=== PATIENT | female | born 1950 | race Caucasian/White ===

== ENCOUNTER 2024-06-01 19:46 | Inpatient (IN) | payer MEDICARE, OTHER, SELFPAY ==
[2024-06-01 15:18] VITALS: BMI 31.1
[2024-06-01 15:23] VITALS: BP 187/93
--- NOTE | 2024-06-01 15:24 | ED.GENMED ---
History of Present Illness
<Dat Santos MD, Resident - Last Filed: 06/01/24 16:56>
General
Chief Complaint: Fall
Source: patient and family
Time Seen by Provider: 06/01/24 15:14
History of Present Illness
History of Present Illness:
73-year-old female, Ms. Jenni Kaur with past medical history significant for diabetes mellitus, obstructive sleep apnea, hypertension, CAD status post CABG X2, restless leg syndrome, chronic balance issues, migraines presented to the ER with
left hip pain after she sustained a fall an hour ago. Patient reports that she was coming out of an ice cream shop and has not realized that there is a curb and tripped over. Patient reports that she fell on her back and hit her head on the curb.
No history of dizziness/lightheadedness, loss of consciousness, nausea/vomiting, visual disturbances, focal neurological deficits. She was able to recollect the events during the fall.Patient's reports that she has some ongoing balance
issues for which she is seeing a physiotherapist/neurologist and had 2 falls in the past couple of years.Patient reports that she has pain in the left inguinal region towards the medial side, 10/10, nonradiating, no loss of sensation in the Left
lower extremity. She is on aspirin 81 mg.
Past History
<Dat Santos MD, Resident - Last Filed: 06/01/24 16:56>
Past History
ED Past Medical History: CAD (CABG X2 in 2013), CVA, Fibromyalgia, HTN, NIDDM and Other (Restless leg syndrome, obstructive sleep apnea on BiPAP)
ED Past Surgical History: Cholecystectomy and Other (Lumbar spinal stenosis s/p x stop device implantation.)
Social History
Tobacco: Non-smoker
Alcohol: Occasional
Drug: Marijuana (Medical marijuana for neuropathy.)
Personal:
Living: with family
Review of Systems
<Dat Santos MD, Resident - Last Filed: 06/01/24 16:56>
Review of Systems
All Other Systems: ROS reviewed and negative except as documented in HPI and ROS
Phy Exam
<Dat Santos MD, Resident - Last Filed: 06/01/24 16:56>
Physical Exam
Physical Exam:
GEN: Patient is in acute distress due to pain.
Eyes: PERRLA, EOMs intact, no scleral icterus
HENT: NCAT, oral mucosa moist, no JVD, no cervical adenopathy.
Lungs: Clear to auscultation anteriorly
Cardiac: RRR, no M/R/G, no peripheral edema. Radial pulses 2+ bilat
Abdomen: S, NT, ND, NABS, no masses or hepatosplenomegaly
Neuro: AO x 3, no focal deficits to BUE/BLE, normal sensation throughout
MSK: Left lower extremity shortened and externally rotated. Tenderness to palpation in the inguinal region on the medial aspect. No visible swelling or erythema. Distal neurovasculature intact. Range of motion restricted due to pain, sensations
intact. Left-sided hammertoe.
Skin: No rashes, petechiae. Normal color, no pallor or jaundice.
Psych: Calm, cooperative, proper hygiene
Course
<Dat Santos MD, Resident - Last Filed: 06/01/24 16:56>
Orders/Labs/Results
Orders:
Orders
06/01/24 15:21
Hip, Left 2-3 Views [CR Hip - LT w/wo Pel 2-3 Vw*] Urgent
Comment:
Reason For Exam: hip trauma left
Include a pelvis x-ray?: Yes
06/01/24 15:30
Basic Metabolic Panel Urgent
Complete Blood Count/With Diff Urgent
06/01/24 15:32
HYDROmorphone [Dilaudid] 0.5 mg .ROUTE .STK-MED ONE
06/01/24 15:33
HYDROmorphone [Dilaudid] 0.5 mg IV NOW STA
Abnormal Lab Results
06/01/24
15:30
MCH 33.2 H pg
(27.0-31.0)
Abs Immat Gran (auto) 0.1 H 10^3/uL
(0-0.05)
Immature Gran % 0.6 H %
(0-0.5)
Carbon Dioxide 31 H mmol/L
(22-30)
BUN 20 H mg/dl
(7-17)
Glucose 105 H mg/dl
(70-99)
06/01/24 15:30
06/01/24 15:30
Vital Signs
Initial and Last Documented VS:
Initial Vital Signs
BP
187/93
06/01/24 15:23
Last Documented Vital Signs
Pulse Resp BP Pulse Ox
84 13 187/93 97
06/01/24 16:00 06/01/24 16:00 06/01/24 15:23 06/01/24 15:45
<Ruddy Rosales, DO - Last Filed: 06/01/24 15:30>
Orders/Labs/Results
Orders:
Orders
06/01/24 15:21
Hip, Left 2-3 Views [CR Hip - LT w/wo Pel 2-3 Vw*] Urgent
Comment:
Reason For Exam: hip trauma left
Include a pelvis x-ray?: Yes
06/01/24 15:30
Basic Metabolic Panel Urgent
Complete Blood Count/With Diff Urgent
06/01/24 15:32
HYDROmorphone [Dilaudid] 0.5 mg .ROUTE .STK-MED ONE
06/01/24 15:33
HYDROmorphone [Dilaudid] 0.5 mg IV NOW STA
Abnormal Lab Results
06/01/24
15:30
MCH 33.2 H pg
(27.0-31.0)
Abs Immat Gran (auto) 0.1 H 10^3/uL
(0-0.05)
Immature Gran % 0.6 H %
(0-0.5)
Carbon Dioxide 31 H mmol/L
(22-30)
BUN 20 H mg/dl
(7-17)
Glucose 105 H mg/dl
(70-99)
06/01/24 15:30
06/01/24 15:30
Vital Signs
Initial and Last Documented VS:
Initial Vital Signs
BP
187/93
06/01/24 15:23
Last Documented Vital Signs
Pulse Resp BP Pulse Ox
84 13 187/93 97
06/01/24 16:00 06/01/24 16:00 06/01/24 15:23 06/01/24 15:45
<Dat Santos MD, Resident - Last Filed: 06/01/24 16:56>
MDM/Problems Addressed
Differential Diagnosis Includes:
Left-sided fracture of femur.
MDM/Problems Addressed:
Pain control with IV Dilaudid.
X-ray showed evidence of fracture neck of the femur.
Admitting the patient for further management.
Informed hospitalist, orthopedician director of litigation.
<Dat Santos MD, Resident - Last Filed: 06/01/24 16:56>
*Critical Care Note
Total Time (30-74mins, 75-104mins- exclusive of procedures): Not Applicable
ED Attending Note
<Dat Santos MD, Resident - Last Filed: 06/01/24 16:56>
-
Portions of this chart may have been created with voice recognition software.� Occasional wrong word or��sound alike� substitutions may have occurred due to the inherent limitations of voice recognition software.
<Ruddy Arellanotajantonina, DO - Last Filed: 06/01/24 15:30>
ED Attending Note
Patient seen and examined by attending physician: Yes
I performed the substantive portion of visit, reviewed & personally made and approve the management plan that is documented in note by myself or DANIELE.: Yes
I performed a history and physical exam of patient and discussed management with resident, I reviewed resident's note and agree with documented findings and plan of care.: Yes
ED Attending Note:
HPI: I agree with resident note
EXAM: The patient has severe pain with passive range of motion into rotation of the hip, she has markedly decreased active range of motion at the hip into flexion
TIME OF INITIAL ENCOUNTER: 3:20 PM
NUMBER AND COMPLEXITY OF PROBLEMS ADDRESSED AT THE ENCOUNTER
� Chronic conditions affecting care: High blood pressure, hyperlipidemia, [place]
� Acute Exacerbation and/or Progression of Chronic Illness: This is an acute problem
� Differential Diagnosis includes: Hip fracture, hip strain, pelvis fracture
AMOUNT AND/OR COMPLEXITY OF DATA TO BE REVIEWED AND ANALYZED
� I performed an independent evaluation of and my interpretation is:
EKG:
CT:
X-rays:
Laboratory Studies:
Other:
� Review of other/old records: No old records available for review in [facility]
� Clinical information was obtained by an independent historian: EMS
� Prescriptions/Medications Considered but not given:
� Further testing considered but not performed:
RISK OF COMPLICATIONS AND/OR MORBIDITY OR MORTALITY OF PATIENT MANAGEMENT
� Social determinants of health affecting care: Lives at home
� Discussion with other providers:
� Escalation of care including admission/observation vs risk of discharge considered: The patient was given narcotic analgesia due to concern for hip fracture upon arrival.
Discharge Plan
Departure
Date of Disposition: 06/01/24
Time of Disposition: 16:44
Admit to: Med/Surg
Presentation/result/management discussed w/ accepting MD/DO: Hospitalist
Condition: Fair
Prescriptions:
No Action
cephalexin 500 mg capsule
500 mg PO QID
folic acid 1 mg Tablet
1 mg PO BID
metoprolol succinate [Toprol XL] 25 mg Tablet Extended Release 24 Hr
25 mg PO HS
methadone 5 mg Tablet
5 mg PO BID@1800,2200
bupropion HCl [Wellbutrin XL] 150 mg Tablet Extended Release 24 Hr
150 mg PO DAILY
Mounjaro 7.5 mg/0.5 mL Pen Injector
7.5 mg SC JOYA
losartan 50 mg Tablet
50 mg PO DAILYPRN PRN (Reason: high blood pressure)
fexofenadine [Jennifer] 60 mg Tablet
60 mg PO DAILY
ketorolac 10 mg Tablet
10 mg PO BIDPRN PRN (Reason: migraines )
Rx Instructions:
maximum total duration of 5 days from all oral, intranasal, or parenteral formulations
famotidine [Pepcid] 20 mg Tablet
20 mg PO HS
ferrous sulfate 325 mg (65 mg iron) Tablet
325 mg PO DAILY@0200
levothyroxine [Synthroid] 150 mcg Tablet
150 mcg PO HS
furosemide [Lasix] 20 mg Tablet
20 mg PO DAILYPRN PRN (Reason: incease weight)
fluticasone propionate [Flonase] 50 mcg/actuation [place],Suspension
1 spray INTRANASAL DAILYPRN PRN (Reason: allergies)
duloxetine [Cymbalta] 30 mg Capsule,Delayed Release(Dr/Ec)
30 mg PO BID@1800,2200
omega-3 acid ethyl esters [Lovaza] 1 gram Capsule
2 cap PO DAILY
Vitron-C 65 mg iron- 125 mg Tablet,Delayed Release (Dr/Ec)
1 tab PO DAILY
Nurtec ODT 75 mg Tablet,Disintegrating
75 mg PO DAILYPRN PRN (Reason: migraines)
vitamin D3-vitamin K2 1,250-200 mcg Capsule
1 cap PO DAILY
magnesium glycinate 100 mg magnesium Capsule
100 mg PO BID
Medical Marijuana-Thc Tablets
1 tab PO HS
Interventions
Interventions:
*Risk Screen - Suicide Last Done: 06/01/24 15:18
*General Assessment Last Done: 06/01/24 15:18
*Neglect/Abuse Screening Last Done: 06/01/24 15:18
*ED COVID-19 Vaccine History Last Done: 06/01/24 15:18
ED-Musculoskeletal Assessment Last Done: 06/01/24 15:18
ED- Neurological Assessment Last Done: 06/01/24 15:18
ED-Skin Assessment Last Done: 06/01/24 15:18
Discharge Date and Time
Print Language: ISRAELI
[2024-06-01] MEDS: DILAUDID 0.5 MG IV ×2 (15:36→18:08)
[2024-06-01 15:38] LABS: % Basophils 0.6 % (0-2); % Eosinophils 1.4 % (0-6); % Immature Granulocytes 0.6 % (0-0.5); % Lymphocytes 30.1 % (20.5-51.1); % Monocytes 7.4 % (1.7-9.3); % Neutrophils 59.9 % (42.2-75.2); Absolute Basophils 0.1 10^3/uL (0-0.2); Absolute Eosinophils 0.1 10^3/uL (0-0.7); Absolute Immature Granulocytes 0.1 10^3/uL (0-0.05); Absolute Lymphocytes 2.6 10^3/uL (1.2-3.4); Absolute Monocytes 0.6 10^3/uL (0.1-0.6); Absolute Neutrophils 5.2 10^3/uL (1.4-6.5); Hematocrit 39.2 % (37.0-47.0); Hemoglobin 14.2 g/dL (12.0-16.0); Mean Corp Hgb Conc. 36.2 g/dL (33.0-37.0); Mean Corpuscular Hgb 33.2 pg (27.0-31.0); Mean Corpuscular Volume 91.6 fL (81.0-99.0); Nucleated Red Blood Cells % 0 %; Platelet Count 275 10^3/uL (130-400); Red Blood Cell Count 4.28 10^6/uL (4.20-5.40); Red Cell Dist. Width 12.6 % (11.5-14.5); White Blood Cell Count 8.6 10^3/uL (4.8-10.8)
[2024-06-01 15:49] LABS: Blood Urea Nitrogen 20 mg/dl (7-17); Calcium 9.8 mg/dl (8.4-10.2); Carbon Dioxide 31 mmol/L (22-30); Chloride 99 mmol/L (98-107); Estimated Creatinine Clearance 64 ml/min; Glucose 105 mg/dl (70-99); Potassium 4.7 mmol/L (3.5-5.1); Sodium 136 mmol/L (135-145); eGFR > 60.00
[2024-06-01 16:30] VITALS: BP 154/90
[2024-06-01 18:00] VITALS: BP 145/67
--- NOTE | 2024-06-01 19:01 | HPS.HSE ---
Family Physician
-
Family Physician: Mellissa Ring MD
Chief Complaint
-
Fall and broken hip
History of Present Illness
73-year-old woman, with past medical history significant for:
diabetes mellitus,
obstructive sleep apnea,
hypertension,
CAD status post CABG X2,
restless leg syndrome,
chronic balance issues,
migraines
Comes to the ER with left hip pain after she had a fall. She was coming out of an ice cream shop, there was a curb and tripped over. She reports that she fell on her back and hit her head on the curb. No history of dizziness/lightheadedness, loss
of consciousness, nausea/vomiting, visual disturbances, focal neurological deficits. She was able to recollect the events during the fall. She has ongoing balance issues and has had 2 falls in the past couple of years. Patient reports that she has
pain in the left inguinal region towards the medial side, 10/10 in intensity, nonradiating, and no loss of sensation in the Left lower extremity. She is on aspirin 81 mg. At the time of my interview, she had received pain meds and was starting to
feel better.
Medical History
Past Medical History
Past Medical History: Reports Other
Additional Past Medical History:
CAD (CABG X2 in 2012),
CVA,
Fibromyalgia,
essential HTN,
NIDDM
Restless leg syndrome,
obstructive sleep apnea on BiPAP
Cholecystectomy
Lumbar spinal stenosis s/p x stop device implantation
Past Surgical History: Reports Other
Additional Past Surgical History:
See above
Social History
Tobacco: Non-smoker
Alcohol: Occasional
Drug: Marijuana
Personal:
Living: With Family
Family History
Family History: Not pertinent
Allergies / Home Medications
Allergies reflects when Allergies were last updated in [employer].
Home Medications with original date entered in [employer]
Allergy/Medication List:
Allergies
Allergy/AdvReac Type Severity Reaction Status Date / Time
No Known Allergies Allergy Unverified 06/01/24 15:29
Home Medications
Medical Marijuana-Thc Tablets 1 tab PO HS 06/01/24
bupropion HCl 150 mg 24 hr tablet, extended release (Wellbutrin XL) 150 mg PO DAILY 06/01/24
cephalexin 500 mg capsule 500 mg PO QID 06/01/24
duloxetine 30 mg capsule,delayed release (Cymbalta) 30 mg PO BID@1800,2200 06/01/24
famotidine 20 mg tablet (Pepcid) 20 mg PO HS 06/01/24
ferrous sulfate 325 mg (65 mg iron) tablet 325 mg PO DAILY@0200 06/01/24
fexofenadine 60 mg tablet 60 mg PO DAILY 06/01/24
fluticasone propionate 50 mcg/actuation nasal spray,suspension 1 spray intranasal DAILYPRN PRN allergies 06/01/24
folic acid 1 mg tablet 1 mg PO BID 06/01/24
furosemide 20 mg tablet (Lasix) 20 mg PO DAILYPRN PRN incease weight 06/01/24
iron,carbonyl 65 mg-vitamin C 125 mg tablet,delayed release (Vitron-C) 1 tab PO DAILY 06/01/24
ketorolac 10 mg tablet 10 mg PO BIDPRN PRN migraines 06/01/24
levothyroxine 150 mcg tablet (Synthroid) 150 mcg PO HS 06/01/24
losartan 50 mg tablet 50 mg PO DAILYPRN PRN high blood pressure 06/01/24
magnesium glycinate 100 mg PO BID 06/01/24
methadone 5 mg tablet 5 mg PO BID@1800,2200 06/01/24
metoprolol succinate 25 mg tablet,extended release 24 hr (Toprol XL) 25 mg PO HS 06/01/24
omega-3 acid ethyl esters 1 gram capsule (Lovaza) 2 cap PO DAILY 06/01/24
rimegepant 75 mg disintegrating tablet (Nurtec ODT) 75 mg PO DAILYPRN PRN migraines 06/01/24
tirzepatide 7.5 mg/0.5 mL subcutaneous pen injector (Mounjaro) 7.5 mg SC JOYA 06/01/24
vitamin D3 1,250 mcg (50,000 unit)-vitamin K2 200 mcg capsule 1 cap PO DAILY 06/01/24
Review of Systems
-
History Source: Patient
A 12 point ROS was completed and negative except as noted: Yes
Physical Exam
Vital Signs
Vital Signs
Pulse Resp BP Pulse Ox
84 13 145/67 97
06/01/24 16:00 06/01/24 16:00 06/01/24 18:00 06/01/24 18:30
Physical Exam
General: Well Developed, Well Nourished, Conversant and Pain
HEENT: [place] Conjunctivae, No Ptosis, Nose Appears Normal and Ears Appear Normal
Respiratory: Clear
Cardiac: S1/S2 and Regular Rhythm
GI: Soft, Non Tender and Non Distended
Musculoskeletal: No Clubbing, No Cyanosis and No Edema
Skin: Warm and Dry
Neuro: Awake, Alert, Oriented and AO x 3
Psych: Calm
Laboratory Results
-
06/01/24 15:30
06/01/24 15:30
Data Reviewed
-
Lab Data: Labs Reviewed by me
Impression/Plan
-
IMPRESSION:
73 woman with broken hip after a mechanical fall. Other significant findings:
BUN/Creat > 20
Hip xray: Comminuted intertrochanteric fracture. No significant displacement or angulation. No hip dislocation. No periacetabular iliac fracture identified
PLAN:
1. broken hip - ortho consulted in the ED.
probable surgery tomorrow
NPO after midnight
Pain control
Gentle IV fluids tonight
2. multiple existing med problems with multiple Home meds
Eval meds and continue appropriate ones
Check ECG and CXR prior to surgery
3. Probable mild dehydration given BUN/Creat > 20
IV fluids tonight
recheck in am
Code: Full
SQ heparin for DVTp once now, then further DVTp per surgery
[2024-06-01 19:29] VITALS: BP 128/73
[2024-06-01] MEDS: MORPHINE SULFATE 2 MG IV ×2 (19:33→22:33)
[2024-06-01 20:10] VITALS: BP 182/98
[2024-06-01 20:20] VITALS: BMI 30.5
[2024-06-01] MEDS: NSS 1000 IV (21:31)
[2024-06-01] MEDS: HEPARIN 5000 UNITS SC (21:40)
[2024-06-01] MEDS: TYLENOL 650 MG PO (21:40)
[2024-06-01] MEDS: PEPCID 20 MG PO (21:41)
[2024-06-01] MEDS: TOPROL XL 25 MG PO (21:41)
[2024-06-01] MEDS: SYNTHROID 150 MCG PO (21:42)
[2024-06-01] MEDS: FOLVITE 1 MG PO (21:42)
[2024-06-01] MEDS: CYMBALTA DELAYED RELEASE 30 MG PO (21:42)
[2024-06-01] MEDS: COZAAR 50 MG PO (22:43)
[2024-06-01 23:04] VITALS: BP 168/92
[2024-06-02] VITALS (15 sets, daily range): BP systolic 142–187; BP diastolic 51–96; PULSE 2–88; BMI 29.4
[2024-06-02] MEDS: ROXICODONE 5 MG PO ×2 (00:29→23:43)
[2024-06-02] MEDS: TYLENOL 650 MG PO ×6 (00:29→23:43)
[2024-06-02] MEDS: FEOSOL 325 MG PO (02:22)
--- NOTE | 2024-06-02 03:07 | W.PN.UPDATE ---
Update Note
Progress Note Update
-Patient had a fall prior admission, hit her head. She complains of severe pain/headache LT side of the head where she hit during the fall. BP 162/92, hr 96, RR 14, temp 98.3, and SPO2 98 % RA. at bedside. Per ,' a friend was present
when she fell and stated that she hit her head bad'
-Patient is awake, alert able to know that she in the hospital, she is confused about the year but its her baseline from pervious stroke affect per .
-Redness was noted on the LT parietal and occipital region with tenderness. Patient denied blurred or change of vision. No neuro changes from the patient`s baseline was noted. Patient has history of Migraines but mentioned this current headache is
different than usual.
-Will start neuro checks.
-Head CT ordered. Result ---->with no evidence of acute intracranial abnormality. No evidence of hemorrhage or mass.
--- NOTE | 2024-06-02 03:26 | PTCARENOTE ---
02:47 2108- pt expressed to ER she hit her head when she fell but was asymptomatic at that time, pt is now c/o GUAJARDO 9/10 frontal and left parietal areas, she does have hx of migraines b/p 160/92 hr 96 , pt is c/o pressure type of pain but not usually
on the left parietal area. Neuros intact, DRINKING WATER TECHNICIAN notified, bedside assessment completed, Urgent CT ordered.
--- NOTE | 2024-06-02 03:31 | PTCARENOTE ---
20:10 pt was rec'd from ER, left hip fx, pt aa0x3, makes needs known, c/o pain t hip 02/28 MSO4 rec;d in ER. Left leg externally rotated with +1edema, vs WNL, pt and oriented to unit .
[2024-06-02] MEDS: MORPHINE SULFATE 2 MG IV ×2 (04:09→08:48)
--- NOTE | 2024-06-02 04:16 | PTCARENOTE ---
04:00 CT completed , smash hand pending.
--- NOTE | 2024-06-02 04:49 | PTCARENOTE ---
04:[address] called, CT of head neg. CHEN IS AWARE.
[2024-06-02] MEDS: NSS 1000 IV ×2 (05:39→16:21)
[2024-06-02] MEDS: LOPRESSOR 25 MG PO (06:49)
[2024-06-02 06:50] LABS: Hematocrit 37.2 % (37.0-47.0); Hemoglobin 13.9 g/dL (12.0-16.0); Mean Corp Hgb Conc. 37.4 g/dL (33.0-37.0); Mean Corpuscular Hgb 32.3 pg (27.0-31.0); Mean Corpuscular Volume 86.5 fL (81.0-99.0); Mean Platelet Volume 8.9 fL (7.4-10.4); Platelet Count 270 10^3/uL (130-400); Red Cell Dist. Width 12.3 % (11.5-14.5); White Blood Cell Count 12.5 10^3/uL (4.8-10.8)
[2024-06-02 07:39] LABS: Blood Urea Nitrogen 14 mg/dl (7-17); Calcium 9.5 mg/dl (8.4-10.2); Carbon Dioxide 28 mmol/L (22-30); Chloride 101 mmol/L (98-107); Estimated Creatinine Clearance 79 ml/min; Glucose 177 mg/dl (70-99); Potassium 4.1 mmol/L (3.5-5.1); Sodium 135 mmol/L (135-145); eGFR > 60.00
[2024-06-02 08:05] LABS: TSH 1.59 uIU/ml (0.47-4.68)
[2024-06-02] MEDS: FOLVITE 1 MG PO ×2 (08:49→21:56)
[2024-06-02] MEDS: WELLBUTRIN XL (24 hour extended release) 150 MG PO (08:50)
[2024-06-02] MEDS: HEPARIN SC ×3 (08:50→22:24)
[2024-06-02] MEDS: MAG-TAB SR 84 MG PO ×2 (08:50→21:58)
--- NOTE | 2024-06-02 09:11 | CON.ORTHO ---
Consultation
-
Date/Time Consultation Requested: Jun 14
Date/Time Consultation Performed: Jun 14
Requesting Provider: Do
Performing Provider: Jace Castroere
Reason for Consultation: Left hip fracture
Consultation - Orthopedics
History
Full H&P dictation to follow
HPI:
requested in consultation to this pleasant 73-year-old white female, with PMH of obstructive sleep apnea, hypertension, CAD status post CABG X2, restless leg syndrome, chronic balance issues, migraines, CVA, Fibromyalgia, essential HTN, NIDDM, seen
in the presence of her , status post mechanical fall yesterday coming out of an ice cream parlor. She denies a prodrome or LOC. However she did strike her head. CT of the head without abnormality. She had immediate pain in her left hip
and was transported here to [facility] where plain radiographs confirmed a left hip fracture. She denies any previous issues or injuries to the left hip. We requested in consultation given her left hip fracture
Allergies / Home Medications
Allergy/AdvReac Type Severity Reaction Status Date / Time
No Known Allergies Allergy Unverified 06/01/24 15:29
�Medication �Instructions �Recorded
Medical Marijuana-Thc Tablets 1 tab PO HS 06/01/24
bupropion HCl 150 mg 24 hr tablet, 150 mg PO DAILY 06/01/24
extended release (Wellbutrin XL)
cephalexin 500 mg capsule 500 mg PO QID 06/01/24
duloxetine 30 mg capsule,delayed 30 mg PO BID@1800,2200 06/01/24
release (Cymbalta)
famotidine 20 mg tablet (Pepcid) 20 mg PO HS 06/01/24
ferrous sulfate 325 mg (65 mg 325 mg PO DAILY@0200 06/01/24
iron) tablet
fexofenadine 60 mg tablet 60 mg PO DAILY 06/01/24
fluticasone propionate 50 1 spray intranasal DAILYPRN PRN 06/01/24
mcg/actuation nasal allergies
spray,suspension
folic acid 1 mg tablet 1 mg PO BID 06/01/24
furosemide 20 mg tablet (Lasix) 20 mg PO DAILYPRN PRN incease 06/01/24
weight
iron,carbonyl 65 mg-vitamin C 125 1 tab PO DAILY 06/01/24
mg tablet,delayed release
(Vitron-C)
ketorolac 10 mg tablet 10 mg PO BIDPRN PRN migraines 06/01/24
levothyroxine 150 mcg tablet 150 mcg PO HS 06/01/24
(Synthroid)
losartan 50 mg tablet 50 mg PO DAILYPRN PRN high blood 06/01/24
pressure
magnesium glycinate 100 mg PO BID 06/01/24
methadone 5 mg tablet 5 mg PO BID@1800,2200 06/01/24
metoprolol succinate 25 mg 25 mg PO HS 06/01/24
tablet,extended release 24 hr
(Toprol XL)
omega-3 acid ethyl esters 1 gram 2 cap PO DAILY 06/01/24
capsule (Lovaza)
rimegepant 75 mg disintegrating 75 mg PO DAILYPRN PRN migraines 06/01/24
tablet (Nurtec ODT)
tirzepatide 7.5 mg/0.5 mL 7.5 mg SC JOYA 06/01/24
subcutaneous pen injector
(Mounjaro)
vitamin D3 1,250 mcg (50,000 1 cap PO DAILY 06/01/24
unit)-vitamin K2 200 mcg capsule
Vital Signs / Lab Results
Temp Pulse Resp BP Pulse Ox
98.7 F 88 18 183/91 98
06/02/24 07:30 06/02/24 07:30 06/02/24 07:30 06/02/24 07:30 06/02/24 07:30
06/02/24 06:37
06/02/24 06:37
Assessment / Plan
PE: Afeb. Bedrest. left hip skin intact. LLE slight short and ER. Generalized pain to palpation about the hip. Positive logroll LLE. Deferred range of motion due to known fracture. Left knee nontender. Calf soft and nontender. Neurovascularly
intact in her left lower extremity.
Xrays: IT Fracture LEFT hip
Impression: RONAL
Plan: I discussed extensively with the patient and her bedside. Fortunately she does have a left hip fracture which would be best served with open treatment. Nonsurgical and surgical treatment options were discussed, including the RBAs
of each approach. After accepting all the proposed risks of surgery she and her would like to proceed. Based on the OR availability we are planning for sometime mid-to-late afternoon for gamma nail fixation of her left femur under the
direction of Dr. Chu. Operative site has been marked as the left hip. Surgical and blood consents have been signed. We briefly discussed the postop and rehab course. we will appreciate case management's assistance with disposition. She will
remain NPO. T&S requested. Discussed with attending hospitalist, Dr. Peter, who will ultimately alexsandra medical clearance to proceed with surgery if she is optimal. ABX concrete bucket loader to the OR. Again we will look to proceed a bit later today under the
direction of Dr. Chu. OR aware.
--- NOTE | 2024-06-02 09:17 | W.PN.HOSP.TC ---
Today's Communication/Plan
-
For OR today
Assessment / Plan
Assessment / Plan
HPI: 73-year-old white female, with PMH of obstructive sleep apnea, hypertension, CAD status post CABG X2, restless leg syndrome, chronic balance issues, migraines, CVA, Fibromyalgia, essential HTN, NIDDM, seen in the presence of her , status
post mechanical fall yesterday coming out of an ice cream parlor. She denies a prodrome or LOC. However she did strike her head. CT of the head without abnormality.
#Acute left hip intertrochanteric fracture
Appreciate orthopedic surgery input, for ORIF today
PT/OT, pain control, bowel regimen
#Leukocytosis
Afebrile, no signs or symptoms of infection
Likely reactive, monitor
#Anxiety/depression
Continue Wellbutrin, Cymbalta
#Hypothyroidism
Continue levothyroxine
#Benign essential hypertension
Continue metoprolol succinate 25 mg at bedtime
DVT prophylaxis�heparin
Full code
Total time spent to see the patient on the floor, examine the patient, review data and lab results, discuss treatment plan with patient, nursing staff around 35 minutes.
Physical Exam
General: No acute distress
HEENT: Normocephalic, Atraumatic, EOMI, MMM
Respiratory: Clear to Auscultation bilaterally
Cardiac: Normal S1/S2, Regular Rate and Rhythm
GI: Soft, Nontender, Nondistended, Normal Bowel Sounds
Musculoskeletal: Left leg shortened and externally rotated
Neuro: Nonfocal/Grossly Intact
Anticipated Discharge: 24 - 48 hours
Subjective/Interval History
-
Date of Service: June 02, 2024
Left hip pain 04/30. No CP/SOB/N/V, no fever.
Objective Data
-
Labs:
Laboratory Results
06/02/24
06:37
WBC 12.5 H
Hgb 13.9
Hct 37.2
Plt Count 270
Sodium 135
Potassium 4.1
Chloride 101
Carbon Dioxide 28
BUN 14
Creatinine 0.6
Glucose 177 H
Calcium 9.5
Vital Signs:
Vital Signs
Temp Pulse Resp BP Pulse Ox
98.7 F 88 18 183/91 98
06/02/24 07:30 06/02/24 07:30 06/02/24 07:30 06/02/24 07:30 06/02/24 07:30
I&O
06/01/24 06/02/24 06/03/24
06:59 06:59 06:59
Intake Total 1220 / 1220
Output Total 1100 / 1100
Balance 120 / 120
[2024-06-02] MEDS: MORPHINE SULFATE 4 MG IV (12:23)
[2024-06-02] MEDS: MIRALAX PO (16:20)
--- NOTE | 2024-06-02 19:52 | OR.RPT ---
Operative Report
Operative Report
Orthopaedic Surgery Operative Note
DATE OF OPERATION: � 06/02/2024
�
PREOPERATIVE DIAGNOSIS: Intertrochanteric Hip Fracture, Left
�
POSTOPERATIVE DIAGNOSIS: Same
�
OPERATION PERFORMED: Left intertrochanteric hip fracture open reduction and internal fixation with cephalomedullary nail
�
SURGEON: Salomon Chu MD
�
TELETYPIST: NA
�
ANESTHESIA: General
�
COMPLICATIONS: None.
�
ESTIMATED BLOOD LOSS: 200 mL.
�
DRAINS: None
SPECIMEN: None
IMPLANTS:�
Bellevue Gamma Cephalomeduallary nail; short nail 125 degree
Bellevue lag screw, 90 mm.�
5.0mm distal interlocking screw x1
INDICATIONS FOR PROCEDURE
73F presented to the ED after a trip and fall. Xrays showed displaced interto I discussed treatment options with the patient and family including nonoperative and operative treatments. We reviewed the natural history of the problem, as well as the
risks, benefits, and alternatives of various treatment options. Shared decision was to proceed with surgical treatment. The patient and family understood the risks including, but were not limited to, bleeding, infection, failure to relieve pain,
more pain than preop, damage to blood vessels and nerves, need for reoperation, mechanical failure of the implants, wound healing problems, stiffness, instability, blood clot, pulmonary embolism, myocardial infarction, pneumonia, arrhythmia, CVA,
and . All questions were answered, and informed consent was obtained.�
�
PROCEDURE IN DETAIL: The patient was identified in the preoperative holding area. The operative limb was identified as the operative site and marked with my initials. The patient was transferred to the operating room. General anesthesia was
performed. The patient was transferred to the [facility] operative table. IV antibiotics and tranexamic acid were given. All bony prominences were well padded. The operative limb was prepped and draped in the usual sterile fashion.�
We performed a surgical time-out.
A 1.6mm (0.65��) teofilo wire was placed in the distal femur, and traction bow was applied. This was well padded over the knee. 15lbs of skeletal traction was applied. The fracture was reduced with the aid of flouroscopy. A small lateral incision
was made, and the guide pin was placed over the medial aspect of the tip of the greater trochanter. The guide wire was advanced and checked for appropriate position on AP and lateral. The pin guide wire was advanced to the level of the lesser
trochanter. The opening reamer was used to open the starting point over the guide wire. The nail was then inserted over the guidewire down to the appropriate depth. The guide wire was removed. The targeting guide was assembled, and a lateral
incision was made for lag screw placement. A guide pin was advanced into the femoral head. Position was checked on AP and lateral. The length was measured to be 95mm. The drill was set to the appropriate depth, and the lag screw path was drilled
over the guide wire. The lag screw was then inserted into the femoral head just distal to the subchondral bone. Compression was applied. The locking screw was then placed into the top of the nail. A single distal interlocking screw was placed into
the static interolocking hole through the guide. Final fluoroscopy shots were performed which showed appropriate position and length of the implant and anatomic reduction of the fracture.�
The incisions were copiously irrigated with 3L normal saline. The deep fascial layers were closed with 0 PDS. The dermal layer closed with 2-0 PDS running. The skin was closed with dana. Sterile dressings were applied. The patient was awoken from
anesthesia without complication.�Sponge and instrument counts were correct x2 at the end of the case.�
�
I was present and participated in the entire procedure. The patient was sent to the recovery room in stable condition.�
Post operative plan:�
WBAT
PT/OT
Pain control
Delirium prevention
ABX: Ancef x24 hours
DVT: ASA 325 daily
Boston Chu MD
[2024-06-02 20:02] LABS: Glucose - Point of Care 139 mg/dl (70-99)
[2024-06-02] MEDS: DILAUDID 0.5 MG IV (20:30)
[2024-06-02] MEDS: NORMOSOL-R 1000 IV (21:05)
--- NOTE | 2024-06-02 21:45 | PTCARENOTE ---
Received patient from PACU. stable vitals. AAOx3, but very forgetful. on RA. Left hip dressing CDI. No pain at this time. IVF Normosol infusing at 100 as ordered. POC reviewed with patient and family
[2024-06-02] MEDS: NSS IV (21:55)
[2024-06-02] MEDS: ASPIRIN 325 MG PO (21:56)
[2024-06-02] MEDS: COLACE 100 MG PO (21:56)
[2024-06-02] MEDS: TYLENOL PO (21:57)
[2024-06-02] MEDS: PEPCID 20 MG PO (22:01)
[2024-06-02] MEDS: CYMBALTA DELAYED RELEASE PO (22:01)
[2024-06-02] MEDS: SYNTHROID 150 MCG PO (22:01)
[2024-06-02] MEDS: TOPROL XL 25 MG PO (22:01)
[2024-06-02] MEDS: CYMBALTA DELAYED RELEASE 30 MG PO (22:02)
[2024-06-02] MEDS: SENOKOT-S 2 TABLET PO (22:02)
[2024-06-03] VITALS (8 sets, daily range): BP systolic 114–171; BP diastolic 49–84
[2024-06-03] MEDS: ANCEF 5 IV ×2 (00:59→09:47)
[2024-06-03] MEDS: FEOSOL PO (02:00)
[2024-06-03] MEDS: ROXICODONE 10 MG PO ×2 (05:22→20:29)
[2024-06-03] MEDS: NORMOSOL-R 1000 IV ×2 (05:22→15:48)
[2024-06-03] MEDS: TYLENOL PO (05:56)
--- NOTE | 2024-06-03 07:21 | W.PN.ORTHO ---
Today's Communication / Plan
-
73-year-old female POD #[address] CMN with Dr. Chu
- WBAT LLE with use of walker for assistance
- PT/OT
- AM Hgb currently pending
- ASA 325mg once daily x 4 weeks for DVT ppx
- Pain control per primary team
- Follow-up in 2 weeks for incision check and x-rays
- Orthopedic surgery will continue to follow along
Assessment
.
Distal Motor Intact: Yes
Dressing:
Clean, dry and intact.
Aquacel dressings in place. No drainage.
Calf is soft and nontender.
Assessment:
POD #1 Left Hip Gamma Nail with Dr. Chu
Plan
.
Surgery / Date: Left Hip CMN / 06/02/[address] Chu
DVT Prophylaxis: Aspirin
Activity:
Out of bed.
PT/OT
Discharge Plan: Other
Discharge Information:
Appreciate CM
Subjective
.
.:
Patient resting comfortably.
Vital Signs and Labs
.
Vital Signs and Labs:
Temp Pulse Resp BP Pulse Ox
98.1 F 87 14 171/84 96
06/03/24 04:00 06/03/24 04:00 06/03/24 04:00 06/03/24 04:00 06/03/24 04:00
[2024-06-03 08:34] LABS: Hematocrit 32.2 % (37.0-47.0); Hemoglobin 11.7 g/dL (12.0-16.0); Mean Corp Hgb Conc. 36.3 g/dL (33.0-37.0); Mean Corpuscular Hgb 32.3 pg (27.0-31.0); Mean Platelet Volume 9.2 fL (7.4-10.4); Platelet Count 234 10^3/uL (130-400); Red Blood Cell Count 3.62 10^6/uL (4.20-5.40); Red Cell Dist. Width 12.6 % (11.5-14.5); White Blood Cell Count 9.2 10^3/uL (4.8-10.8)
--- NOTE | 2024-06-03 09:31 | W.PN.HOSP.TC ---
Addendum entered and electronically signed by Chris Peter MD 06/03/24 16:44:
#Transaminitis
Likely drug-induced liver injury
Stop acetaminophen, check abdominal ultrasound, trend LFTs
Original Note:
Today's Communication/Plan
-
Discharge to short-term rehab when bed available
Assessment / Plan
Assessment / Plan
HPI: 73-year-old white female, with PMH of obstructive sleep apnea, hypertension, CAD status post CABG X2, restless leg syndrome, chronic balance issues, migraines, CVA, Fibromyalgia, essential HTN, NIDDM, seen in the presence of her , status
post mechanical fall yesterday coming out of an ice cream parlor. She denies a prodrome or LOC. However she did strike her head. CT of the head without abnormality.
#Acute left hip intertrochanteric fracture
Appreciate orthopedic surgery input, s/p Left Hip CMN with Dr. Chu 06/02
PT/OT, pain control, bowel regimen
Discharge to short-term rehab when bed available
Needs to be discharged on aspirin 325 mg daily through 06/29/24 for DVT ppx
#Acute blood loss anemia from surgery
Mild, monitor
#Leukocytosis
Afebrile, no signs or symptoms of infection
Likely reactive, monitor
#Anxiety/depression
Continue Wellbutrin, Cymbalta
#Hypothyroidism
Continue levothyroxine
#Benign essential hypertension
Continue metoprolol succinate 25 mg at bedtime
DVT prophylaxis�SQ lovenox
Full code
Total time spent to see the patient on the floor, examine the patient, review data and lab results, discuss treatment plan with patient, nursing staff around 45 minutes.
Physical Exam
General: No acute distress
HEENT: Normocephalic, Atraumatic, EOMI, MMM
Respiratory: Clear to Auscultation bilaterally
Cardiac: Normal S1/S2, Regular Rate and Rhythm
GI: Soft, Nontender, Nondistended, Normal Bowel Sounds
Musculoskeletal: Left leg shortened and externally rotated
Neuro: Nonfocal/Grossly Intact
Anticipated Discharge: Within 24 hours
Subjective/Interval History
-
Date of Service: June 03, 2024
Patient denies chest pain, denies shortness of breath. Her pain is 7 out of 10 in intensity. No fever, no vomiting.
Objective Data
-
Labs:
Laboratory Results
06/03/24
06:49
WBC 9.2
Hgb 11.7 L
Hct 32.2 L
Plt Count 234
Sodium Pending
Potassium Pending
Chloride Pending
Carbon Dioxide Pending
BUN Pending
Creatinine Pending
Glucose Pending
Calcium Pending
Total Bilirubin Pending
AST Pending
ALT Pending
Alkaline Phosphatase Pending
Vital Signs:
Vital Signs
Temp Pulse Resp BP Pulse Ox
98.6 F 84 17 146/76 99
06/03/24 07:41 06/03/24 07:41 06/03/24 07:41 06/03/24 07:41 06/03/24 07:41
I&O
06/02/24 06/03/24 06/04/24
06:59 06:59 06:59
Intake Total 1220 / 1220 1750 / 1750
Output Total 1100 / 1100 850 / 850
Balance 120 / 120 900 / 900
[2024-06-03] MEDS: FOLVITE 1 MG PO ×2 (09:47→20:19)
[2024-06-03] MEDS: WELLBUTRIN XL (24 hour extended release) 150 MG PO (09:48)
[2024-06-03] MEDS: MIRALAX 17 GRAMS PO (09:48)
[2024-06-03] MEDS: MAG-TAB SR 84 MG PO ×2 (09:48→20:19)
[2024-06-03] MEDS: TYLENOL 650 MG PO ×3 (09:49→15:54)
[2024-06-03] MEDS: COLACE 100 MG PO (09:49)
[2024-06-03] MEDS: SENOKOT-S 2 TABLET PO (09:49)
[2024-06-03 09:55] LABS: ALT (SGPT) 964 U/L (0-35); AST (SGOT) 725 U/L (14-36); Albumin 3.5 g/dl (3.5-5.0); Alkaline Phosphatase 135 U/L (38-126); Blood Urea Nitrogen 13 mg/dl (7-17); Calcium 9.1 mg/dl (8.4-10.2); Carbon Dioxide 25 mmol/L (22-30); Chloride 102 mmol/L (98-107); Estimated Creatinine Clearance 79 ml/min; Glucose 140 mg/dl (70-99); Potassium 4.7 mmol/L (3.5-5.1); Sodium 136 mmol/L (135-145); Total Bilirubin 1.2 mg/dl (0.2-1.3); Total Protein 5.8 g/dl (6.3-8.2); eGFR > 60.00
[2024-06-03] MEDS: ROXICODONE 5 MG PO ×2 (10:06→17:56)
[2024-06-03] MEDS: ASPIRIN PO (10:11)
[2024-06-03] MEDS: HEPARIN SC (10:11)
--- NOTE | 2024-06-03 11:35 | CM ---
Addendum entered by LEANNE Hernández 06/03/24 11:55:
Sending referrals through [employer] to: [facility], [facility], [facility] and the [facility].
Original Note:
Reviewed chart, met with patient and her spouse to obtain information for assessment. (Received consult for discharge planning). Patient stated that she lives with her spouse who was at bedside in a one floor apartment with elevator access to get
into. She described herself as independent with all of her ADLs, personal care, dressing, bathing and ambulated with a rollator.
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
She was able to drive and was able to get herself to her appointments and do her own shopping.
Patient besides the rollator has: A walker, a cane, grab bar in the shower, and toilet rails
She has had VN services in the past through [facility]. She has been to SNF at [facility]. Patient is from [facility] and was in [place] getting ice cream when she fell, therefore she was brought to . For SNF she and her
spouse would prefer facilities that are closer to where they reside.
Patient has a prescription plan and uses, [facility] in [place] for all of her medications.
Her provider is Mellissa Ring.
Will make referrals to requested facilities and update patient about availability.
Plan: Case management will continue to follow and assist with discharge planning. SNF when stable.
[2024-06-03] MEDS: LOVENOX 40 MG SC (17:57)
[2024-06-03] MEDS: CYMBALTA DELAYED RELEASE 30 MG PO ×2 (17:57→21:14)
[2024-06-03] MEDS: MORPHINE SULFATE 2 MG IV (17:59)
[2024-06-03 18:25] LABS: Glucose - Point of Care 151 mg/dl (70-99)
[2024-06-03] MEDS: DOLOPHINE 5 MG PO ×2 (18:39→21:01)
[2024-06-03] MEDS: SENOKOT-S PO (20:18)
[2024-06-03] MEDS: TOPROL XL 25 MG PO (21:14)
[2024-06-03] MEDS: PEPCID 20 MG PO (21:14)
[2024-06-03] MEDS: SYNTHROID 150 MCG PO (21:14)
[2024-06-04] MEDS: NORMOSOL-R IV (02:18)
[2024-06-04] MEDS: FEOSOL 325 MG PO (02:21)
[2024-06-04] MEDS: ROXICODONE 10 MG PO ×4 (06:32→21:47)
[2024-06-04 06:58] LABS: Hematocrit 29.1 % (37.0-47.0); Hemoglobin 10.5 g/dL (12.0-16.0); Mean Corp Hgb Conc. 36.1 g/dL (33.0-37.0); Mean Corpuscular Hgb 32.8 pg (27.0-31.0); Mean Corpuscular Volume 90.9 fL (81.0-99.0); Mean Platelet Volume 9.3 fL (7.4-10.4); Platelet Count 217 10^3/uL (130-400); Red Cell Dist. Width 12.9 % (11.5-14.5); White Blood Cell Count 8.9 10^3/uL (4.8-10.8)
[2024-06-04 07:20] VITALS: BP 120/67
[2024-06-04 07:33] LABS: ALT (SGPT) 452 U/L (0-35); AST (SGOT) 188 U/L (14-36); Albumin 3.3 g/dl (3.5-5.0); Alkaline Phosphatase 119 U/L (38-126); Blood Urea Nitrogen 15 mg/dl (7-17); Calcium 8.8 mg/dl (8.4-10.2); Carbon Dioxide 30 mmol/L (22-30); Chloride 103 mmol/L (98-107); Estimated Creatinine Clearance 79 ml/min; Glucose 149 mg/dl (70-99); Potassium 4.2 mmol/L (3.5-5.1); Sodium 137 mmol/L (135-145); Total Protein 5.5 g/dl (6.3-8.2); eGFR > 60.00
--- NOTE | 2024-06-04 07:41 | W.PN.ORTHO ---
Today's Communication / Plan
-
73-year-old female POD #2 Left Hip CMN with Dr. Chu
- WBAT LLE with use of walker for assistance
- PT/OT
- AM Hgb currently pending
- ASA 325mg once daily x 4 weeks for DVT ppx
- Pain control per primary team
- Follow-up in 2 weeks for incision check and x-rays
- Orthopedic surgery will follow peripherally; please reengage with questions/concerns.
Assessment
.
Distal Motor Intact: Yes
Dressing:
Clean, dry and intact.
Plan
.
Surgery / Date: Left Hip CMN / 06/02/[address] Chu
Activity:
Out of bed.
PT/OT
Subjective
.
.:
Patient resting comfortably.
Vital Signs and Labs
.
Vital Signs and Labs:
Lab Results
06/04/24 06:22
06/04/24 06:22
Temp Pulse Resp BP Pulse Ox
98.5 F 95 20 114/49 98
06/03/24 23:54 06/03/24 23:54 06/03/24 23:54 06/03/24 23:54 06/04/24 00:55
[2024-06-04] MEDS: MIRALAX PO (08:03)
[2024-06-04] MEDS: WELLBUTRIN XL (24 hour extended release) 150 MG PO (08:03)
[2024-06-04] MEDS: CLARITIN 10 MG PO (08:03)
[2024-06-04] MEDS: SENOKOT-S PO ×2 (08:03→20:32)
[2024-06-04] MEDS: MAG-TAB SR 84 MG PO ×2 (08:03→20:32)
[2024-06-04] MEDS: FOLVITE 1 MG PO ×2 (08:03→20:32)
[2024-06-04] MEDS: NON-FORMULARY ITEM 7.5 MG SC (08:04)
--- NOTE | 2024-06-04 08:33 | W.PN.HOSP.TC ---
Today's Communication/Plan
-
Discharge to short-term rehab tomorrow if bed available
Assessment / Plan
Assessment / Plan
HPI: 73-year-old white female, with PMH of obstructive sleep apnea, hypertension, CAD status post CABG X2, restless leg syndrome, chronic balance issues, migraines, CVA, Fibromyalgia, essential HTN, NIDDM, seen in the presence of her , status
post mechanical fall yesterday coming out of an ice cream parlor. She denies a prodrome or LOC. However she did strike her head. CT of the head without abnormality.
#Acute left hip intertrochanteric fracture
Appreciate orthopedic surgery input, s/p Left Hip CMN with Dr. Chu 06/02
PT/OT, pain control, bowel regimen
Discharge to short-term rehab tomorrow if bed available
Needs to be discharged on aspirin 325 mg daily through 06/29/24 for DVT ppx
#Transaminitis
Abdominal ultrasound reviewed. Hepatitis panel negative
Likely from scheduled Tylenol use. Tylenol discontinued.
LFTs trending down, continue to trend
#Chronic pain syndrome on chronic methadone
Methadone resumed
#Acute blood loss anemia from surgery
Mild, monitor
#Leukocytosis
Afebrile, no signs or symptoms of infection
Likely reactive, monitor
#Anxiety/depression
Continue Wellbutrin, Cymbalta
#Hypothyroidism
Continue levothyroxine
#Benign essential hypertension
Continue metoprolol succinate 25 mg at bedtime
DVT prophylaxis�SQ lovenox
Full code
Updated at bedside 06/04
Total time spent to see the patient on the floor, examine the patient, review data and lab results, discuss treatment plan with patient, nursing staff around 51 minutes.
Physical Exam
General: No acute distress
HEENT: Normocephalic, Atraumatic, EOMI, MMM
Respiratory: Clear to Auscultation bilaterally
Cardiac: Normal S1/S2, Regular Rate and Rhythm
GI: Soft, Nontender, Nondistended, Normal Bowel Sounds
Musculoskeletal: Left hip incision dressed
Neuro: Nonfocal/Grossly Intact
Anticipated Discharge: Within 24 hours
Subjective/Interval History
-
Date of Service: June 04, 2024
Patient reports that her hip pain is improved. No chest pain, shortness of breath, or palpitations. No fever, no vomiting.
Objective Data
-
Labs:
Laboratory Results
06/04/24
06:22
WBC 8.9
Hgb 10.5 L
Hct 29.1 L
Plt Count 217
Sodium 137
Potassium 4.2
Chloride 103
Carbon Dioxide 30
BUN 15
Creatinine 0.6
Glucose 149 H
Calcium 8.8
Total Bilirubin 1.0
AST 188 H
ALT 452 H
Alkaline Phosphatase 119
Vital Signs:
Vital Signs
Temp Pulse Resp BP Pulse Ox
98.2 F 85 16 120/67 96
06/04/24 07:20 06/04/24 07:20 06/04/24 07:20 06/04/24 07:20 06/04/24 07:20
I&O
06/03/24 06/04/24 06/05/24
06:59 06:59 06:59
Intake Total 1750 / 1750 4300 / 4300
Output Total 850 / 850
Balance 900 / 900 4300 / 4300
[2024-06-04 10:23] VITALS: BP 127/57; PULSE 92
--- NOTE | 2024-06-04 13:48 | CM ---
Addendum entered by Keyla Paredes RN 06/04/24 16:51:
Jermaine spoke with Shantel pt can not be accepted.
Jonathan SO requested [facility]. Spoke with Shantel at [facility] she said she has a bed for pt tomorrow.
Jonathan notified . Discussed transportation which will probable need wc van . Jonathan notified van is a charge.
PLAN To [facility] tomorrow
Addendum entered by Keyla Paredes RN 06/04/24 16:30:
Called Manuel Subramanian back she said SNF bed was take and can not provide a bed.
Called Jermaine EVERETT with Admissions requesting bed availability.
Spoke with Shantel at [facility] she said she had a bed available.
Spoke with Jonathan Pts SO informed him of above . He asked to check with Michael in am for SNF bed.
PLAN TO SNF when located
Addendum entered by Keyla Paredes RN 06/04/24 15:43:
Spoke with Manuel at [facility] she said she needs to check if bed available . She will call me back .
Original Note:
PT OT evals = SNF.
Pt requested additional SNF referral . Additional referral for Marilynn and Kirk Zazueta at [facility].
Pt has Medicare .
PLAN To SNF after located
[2024-06-04 15:15] VITALS: BP 156/75
[2024-06-04] MEDS: DOLOPHINE 5 MG PO ×2 (17:46→21:04)
[2024-06-04] MEDS: LOVENOX 40 MG SC (17:46)
[2024-06-04] MEDS: CYMBALTA DELAYED RELEASE 30 MG PO ×2 (17:46→21:04)
[2024-06-04] MEDS: SYNTHROID 150 MCG PO (21:03)
[2024-06-04] MEDS: TOPROL XL 25 MG PO (21:04)
[2024-06-04] MEDS: PEPCID 20 MG PO (21:04)
[2024-06-04 23:00] VITALS: BP 188/90
[2024-06-05] VITALS (7 sets, daily range): BP systolic 139–172; BP diastolic 64–90
[2024-06-05] MEDS: COZAAR 50 MG PO (01:05)
[2024-06-05] MEDS: FEOSOL 325 MG PO (01:06)
[2024-06-05 08:09] LABS: Hematocrit 27.4 % (37.0-47.0); Mean Corp Hgb Conc. 36.5 g/dL (33.0-37.0); Mean Corpuscular Hgb 32.8 pg (27.0-31.0); Mean Corpuscular Volume 89.8 fL (81.0-99.0); Mean Platelet Volume 9.2 fL (7.4-10.4); Platelet Count 242 10^3/uL (130-400); Red Blood Cell Count 3.05 10^6/uL (4.20-5.40); White Blood Cell Count 9.7 10^3/uL (4.8-10.8)
[2024-06-05] MEDS: CLARITIN 10 MG PO (08:21)
[2024-06-05] MEDS: FOLVITE 1 MG PO ×2 (08:22→21:22)
[2024-06-05] MEDS: SENOKOT-S PO (08:22)
[2024-06-05] MEDS: MIRALAX PO (08:22)
[2024-06-05] MEDS: ROXICODONE 10 MG PO ×3 (08:23→21:22)
[2024-06-05] MEDS: WELLBUTRIN XL (24 hour extended release) 150 MG PO (08:23)
[2024-06-05] MEDS: MAG-TAB SR 84 MG PO ×2 (08:23→21:22)
[2024-06-05 08:31] LABS: ALT (SGPT) 281 U/L (0-35); AST (SGOT) 85 U/L (14-36); Albumin 3.2 g/dl (3.5-5.0); Alkaline Phosphatase 106 U/L (38-126); Blood Urea Nitrogen 12 mg/dl (7-17); Carbon Dioxide 29 mmol/L (22-30); Chloride 101 mmol/L (98-107); Estimated Creatinine Clearance 79 ml/min; Glucose 128 mg/dl (70-99); Potassium 4.3 mmol/L (3.5-5.1); Sodium 136 mmol/L (135-145); Total Bilirubin 1.3 mg/dl (0.2-1.3); Total Protein 5.4 g/dl (6.3-8.2); eGFR > 60.00
--- NOTE | 2024-06-05 08:31 | PN.CDI ---
CDI
- -
CDI:
Physician Documentation Request
Admit Date: 06/01/24 19:46
Dear Doctor Do,
Please review the following and provide your response in the progress notes.
Clinical Indicators:
- 06/04 PN 'Chronic pain syndrome on chronic methadone'
- per H&P 5mg Methadone BID
If possible, please provide further specificity as outlined below:
Opioid use with dependence
Opioid dependence
Other
Use of terms such as suspected, likely, concern for, or probable (associated with a specific diagnosis that is being evaluated, monitored, or treated as if it exists) are acceptable and can be coded in the inpatient setting, when documented at the
time of discharge.
Thank you,
Alejandro Clement RN
CDI Specialist
Please use your independent medical judgment in providing your response.
--- NOTE | 2024-06-05 08:39 | W.PN.HOSP.TC ---
Addendum entered and electronically signed by Chris Peter MD 06/05/24 16:07:
Upon further investigation, it appears that patient is having hematuria.
No need for GI consult.
Send urine analysis.
Monitor hemoglobin.
Addendum entered and electronically signed by Chris Peter MD 06/05/24 14:32:
Nursing staff reports patient having rectal bleeding, with bright red blood in toilet.
Cancel discharge, consult GI.
Original Note:
Today's Communication/Plan
-
Discharge to [facility] today
Assessment / Plan
Assessment / Plan
HPI: 73-year-old white female, with PMH of obstructive sleep apnea, hypertension, CAD status post CABG X2, restless leg syndrome, chronic balance issues, migraines, CVA, Fibromyalgia, essential HTN, NIDDM, seen in the presence of her , status
post mechanical fall yesterday coming out of an ice cream parlor. She denies a prodrome or LOC. However she did strike her head. CT of the head without abnormality.
#Acute left hip intertrochanteric fracture
Appreciate orthopedic surgery input, s/p Left Hip CMN with Dr. Chu 06/02
PT/OT, pain control, bowel regimen
Discharge to short-term rehab today, f/u w/ ortho in the office in 2 weeks
Needs to be discharged on aspirin 325 mg daily through 06/29/24 for DVT ppx
#Transaminitis
Abdominal ultrasound reviewed. Hepatitis panel negative
Likely from scheduled Tylenol use. Tylenol discontinued.
LFTs trending down, continue to trend
#Chronic pain syndrome on chronic methadone
#Chronic opioid use with dependence
Methadone resumed
#Acute blood loss anemia from surgery
Mild, monitor
#Leukocytosis
Afebrile, no signs or symptoms of infection
Likely reactive, monitor
#Anxiety/depression
Continue Wellbutrin, Cymbalta
#Hypothyroidism
Continue levothyroxine
#Benign essential hypertension
Continue metoprolol succinate 25 mg at bedtime, losartan 50 mg daily prn
DVT prophylaxis�SQ lovenox
Full code
Updated at bedside 06/04
Physical Exam
General: No acute distress
HEENT: Normocephalic, Atraumatic, EOMI, MMM
Respiratory: Clear to Auscultation bilaterally
Cardiac: Normal S1/S2, Regular Rate and Rhythm
GI: Soft, Nontender, Nondistended, Normal Bowel Sounds
Musculoskeletal: Left hip incision dressed
Neuro: Nonfocal/Grossly Intact
Anticipated Discharge: Today
Subjective/Interval History
-
Date of Service: June 05, 2024
Left hip pain improved. No CP/SOB/ No fever, no vomiting.
Objective Data
-
Labs:
Laboratory Results
06/05/24
07:01
WBC 9.7
Hgb 10.0 L
Hct 27.4 L
Plt Count 242
Sodium 136
Potassium 4.3
Chloride 101
Carbon Dioxide 29
BUN 12
Creatinine 0.6
Glucose 128 H
Calcium 9.0
Total Bilirubin 1.3
AST 85 H
ALT 281 H
Alkaline Phosphatase 106
Vital Signs:
Vital Signs
Temp Pulse Resp BP Pulse Ox
98.9 F 88 16 172/77 97
06/05/24 07:07 06/05/24 07:07 06/05/24 07:07 06/05/24 07:07 06/05/24 07:07
I&O
06/04/24 06/05/24 06/06/24
06:59 06:59 06:59
Intake Total 4300 / 4300 960 / 960
Balance 4300 / 4300 960 / 960
--- NOTE | 2024-06-05 10:06 | CM ---
Addendum entered by Bernadette Salazar 06/05/24 14:33:
Per Attending patient's discharge has been cancelled for today
Addendum entered by Bernadette Salazar 06/05/24 12:59:
IMM benefit explained; form signed @ 1250
Addendum entered by Bernadette Salazar 06/05/24 11:24:
Wheel chair van pickle solution maker scheduled today @ 1530
Addendum entered by Bernadette Salazar 06/05/24 10:08:
[facility]
Report # [phone]; ask for A Wing

Original Note:
Plan: Stable for Discharge to SNF via WC Van; Bed is available @ [facility] in [place]
[2024-06-05] MEDS: Pyridium 100 MG PO (11:46)
--- NOTE | 2024-06-05 11:50 | PTCARENOTE ---
Addendum entered by Rika Lei RN 06/05/24 16:18:
Patient had blood/blood clots in toilet after voiding. Patient did not have visible hemorrhoids or blood at the rectum. Patient was unsure where it came from. Patient denied pain or burning when urinating. Dr. Peter made aware. Discharge cancelled. UA
ordered and obtained via straight cath. Blood clots seen in urine. Urine was orange from Pyridium given earlier. UA sent to lab. Dr. Peter made aware of hematuria.
Original Note:
Patient c/o pain in her urethra just when sitting, not with urinating. Patient explains that she has this at home at times and take Pyridium. Dr. Peter made aware. Pyridium ordered and given.
[2024-06-05 16:10] LABS: Urine Albumin Trace (Neg - Trace); Urine Bilirubin 1+ (Negative); Urine Character Clear (Clear); Urine Color Yellow; Urine Glucose Negative (Negative); Urine Ketone Negative (Negative); Urine Leukocyte 2+ (Negative); Urine Nitrite Positive (Negative); Urine Occult Blood 4+ (Negative); Urine Urobilinogen 1+ (Neg - 1+)
[2024-06-05 16:25] LABS: Urine Red Blood Cell 40-50 /HPF (0-2)
[2024-06-05] MEDS: DOLOPHINE 5 MG PO ×3 (17:55→23:22)
[2024-06-05] MEDS: CYMBALTA DELAYED RELEASE 30 MG PO ×2 (17:55→22:03)
[2024-06-05] MEDS: ROCEPHIN 1000 MG IV (17:57)
[2024-06-05] MEDS: LOVENOX 40 MG SC (17:57)
[2024-06-05] MEDS: STERILE WATER FOR INJECTION 10 ML IV (17:58)
[2024-06-05 18:40] LABS: Hepatitis B Surface Antigen Negative (Negative)
[2024-06-05 18:59] LABS: Hepatitis B Core Ab, Total Negative (Negative); Hepatitis B Surface Antibody Negative; Hepatitis C Antibody Negative (Negative)
[2024-06-05 19:03] LABS: Hepatitis A Antibody, Total Negative (Negative)
[2024-06-05] MEDS: PEPCID 20 MG PO (22:03)
[2024-06-05] MEDS: SYNTHROID 150 MCG PO (22:03)
[2024-06-05] MEDS: SENOKOT-S 2 TABLET PO (22:03)
[2024-06-05] MEDS: TOPROL XL 25 MG PO (23:22)
--- NOTE | 2024-06-05 23:45 | PTCARENOTE ---
Pt requesting additional dose of methadone. States 'if I am in really bad shape, sometimes I take a 3rd dose if I need it' Med rec reviewed with patient and patient states 'I don't know why my did that'. then called to speak to
RN, demanding repeatedly that his be given more methadone and therer are times that she takes up to 4 doses in one day. Pt's aviva states the script is 5 mg Q8H. Explained that provider has been contacted and awaiting response. Pt's
verbally aggressive on telephone repeatedly demanding. SPECIAL EQUIPMENT TECHNICIAN covering house ordered one additional dose (refer to MAR). Pt verbalizes gratitude and asking how to get additional doses tomorrow. Instructed to speak with attending regarding
medication schedule.
[2024-06-06] MEDS: FEOSOL 325 MG PO (01:45)
[2024-06-06 07:21] LABS: Hematocrit 27.2 % (37.0-47.0); Hemoglobin 9.9 g/dL (12.0-16.0); Mean Corp Hgb Conc. 36.4 g/dL (33.0-37.0); Mean Corpuscular Hgb 33.1 pg (27.0-31.0); Mean Platelet Volume 9.4 fL (7.4-10.4); Platelet Count 257 10^3/uL (130-400); Red Blood Cell Count 2.99 10^6/uL (4.20-5.40); Red Cell Dist. Width 12.7 % (11.5-14.5); White Blood Cell Count 12.2 10^3/uL (4.8-10.8)
[2024-06-06 07:43] VITALS: BP 147/69
[2024-06-06] MEDS: WELLBUTRIN XL (24 hour extended release) 150 MG PO (07:50)
[2024-06-06] MEDS: FOLVITE 1 MG PO (07:50)
[2024-06-06] MEDS: CLARITIN 10 MG PO (07:50)
[2024-06-06 07:51] LABS: ALT (SGPT) 181 U/L (0-35); AST (SGOT) 53 U/L (14-36); Albumin 3.1 g/dl (3.5-5.0); Alkaline Phosphatase 103 U/L (38-126); Blood Urea Nitrogen 15 mg/dl (7-17); Carbon Dioxide 27 mmol/L (22-30); Chloride 98 mmol/L (98-107); Estimated Creatinine Clearance 79 ml/min; Glucose 147 mg/dl (70-99); Sodium 134 mmol/L (135-145); Total Protein 5.3 g/dl (6.3-8.2); eGFR > 60.00
[2024-06-06] MEDS: MAG-TAB SR 84 MG PO (07:51)
[2024-06-06] MEDS: MIRALAX PO (07:53)
[2024-06-06] MEDS: SENOKOT-S 2 TABLET PO (07:53)
--- NOTE | 2024-06-06 08:48 | W.PN.HOSP.TC ---
Today's Communication/Plan
-
Discharge to short-term rehab today
Assessment / Plan
Assessment / Plan
HPI: 73-year-old white female, with PMH of obstructive sleep apnea, hypertension, CAD status post CABG X2, restless leg syndrome, chronic balance issues, migraines, CVA, Fibromyalgia, essential HTN, NIDDM, seen in the presence of her , status
post mechanical fall yesterday coming out of an ice cream parlor. She denies a prodrome or LOC. However she did strike her head. CT of the head without abnormality.
#Acute left hip intertrochanteric fracture
Appreciate orthopedic surgery input, s/p Left Hip CMN with Dr. Chu 06/02
PT/OT, pain control, bowel regimen
Discharge to short-term rehab today, f/u w/ ortho in the office in 2 weeks
Needs to be discharged on aspirin 325 mg daily through 06/29/24 for DVT ppx
#Transaminitis
Abdominal ultrasound reviewed. Hepatitis panel negative
Likely from scheduled Tylenol use. Tylenol discontinued.
LFTs trending down, continue to trend
#Acute urinary tract infection
#Acute hematuria
Hematuria resolved
Status post Rocephin x 1, will discharge on cefdinir to complete a 5-day course
#Chronic pain syndrome on chronic methadone
#Chronic opioid use with dependence
Methadone resumed
#Acute blood loss anemia from surgery
Mild, monitor
#Leukocytosis
Afebrile, no signs or symptoms of infection
Likely reactive, monitor
#Anxiety/depression
Continue Wellbutrin, Cymbalta
#Hypothyroidism
Continue levothyroxine
#Benign essential hypertension
Continue metoprolol succinate 25 mg at bedtime, losartan 50 mg daily prn
DVT prophylaxis�SQ lovenox
Full code
Updated on phone 06/05
Physical Exam
General: No acute distress
HEENT: Normocephalic, Atraumatic, EOMI, MMM
Respiratory: Clear to Auscultation bilaterally
Cardiac: Normal S1/S2, Regular Rate and Rhythm
GI: Soft, Nontender, Nondistended, Normal Bowel Sounds
Musculoskeletal: Left hip incision dressed
Neuro: Nonfocal/Grossly Intact
Anticipated Discharge: Today
Subjective/Interval History
-
Date of Service: June 06, 2024
No recurrence of hematuria. Abdominal pain resolved. Her left hip pain is improved. No fever, no vomiting.
Objective Data
-
Labs:
Laboratory Results
06/06/24
06:00
WBC 12.2 H
Hgb 9.9 L
Hct 27.2 L
Plt Count 257
Sodium 134 L
Potassium 4.0
Chloride 98
Carbon Dioxide 27
BUN 15
Creatinine 0.6
Glucose 147 H
Calcium 9.0
Total Bilirubin 1.0
AST 53 H
ALT 181 H
Alkaline Phosphatase 103
Vital Signs:
Vital Signs
Temp Pulse Resp BP Pulse Ox
97.9 F 80 16 147/69 99
06/06/24 07:43 06/06/24 07:43 06/06/24 07:43 06/06/24 07:43 06/06/24 07:43
I&O
06/05/24 06/06/24 06/07/24
06:59 06:59 06:59
Intake Total 960 / 960 480 / 480
Output Total 800 / 800
Balance 960 / 960 -320 / -320
[2024-06-06] MEDS: ROXICODONE 5 MG PO (08:59)
[2024-06-06 10:31] VITALS: BP 127/61; PULSE 93
[2024-06-06] MEDS: OMNICEF 300 MG PO (11:13)
--- NOTE | 2024-06-06 11:38 | CM ---
Addendum entered by LEANNE Hernández 06/06/24 11:41:
2S nurse staff community health updated and arranging for w/c van.
Original Note:
Reviewed chart, spoke with CM on case yesterday, patient is medically stable for discharge today. Placed a call to Shantel in admissions at [facility] and left a voice mail message to update. Provided cell# in the event that she has any concerns.
Plan: Case management will continue to follow and assist with discharge planing. Transfer to SNF today.
[2024-06-06 12:29] VITALS: BP 145/70
[2024-06-06] MEDS: ROXICODONE 10 MG PO (13:01)
--- NOTE | 2024-06-06 14:42 | W.DCSUMMARY ---
Discharge Summary
Discharge Data
Date of Admission: 06/01/24
Date of Discharge: 06/06/24
-
Pending Results: No
Hospital Course
Discharge diagnosis:
Acute left hip intertrochanteric fracture
Transaminitis
Acute urinary tract infection
Transient hematuria
Chronic pain syndrome on chronic opioids with dependency
Acute blood loss anemia
Anxiety/depression
Hypothyroidism
Benign essential hypertension
Consults: Orthopedic surgery
Procedures:
06/02/2024 left intertrochanteric hip fracture open reduction and internal fixation with cephalomedullary nail
Hospital course:
73-year-old female with a past medical history of chronic pain syndrome on chronic opioids with dependency, hypothyroidism, hypertension, and anxiety/depression was admitted for acute left hip fracture status post mechanical fall. Patient was seen
in conjunction with orthopedic surgery. She underwent left hip ORIF on 06/02/2024.
Patient had mild acute blood loss anemia from the surgery, her hemoglobin was monitored and was stable at 9.9 on the day of discharge.
Patient's hospital course was complicated by transaminitis due to scheduled Tylenol use. Tylenol was discontinued, and her liver function test trended down. She should avoid Tylenol until her liver function tests have completely normalized.
Patient did have transient hematuria. Her urine analysis showed probable urinary tract infection. She did have associated suprapubic pain with leukocytosis. She received IV Rocephin, and will be discharged on cefdinir to complete a 5-day course.
Patient is medically stable and cleared by orthopedic surgery for discharge. She needs to continue aspirin 325 mg daily for DVT prophylaxis through 06/29/2024. She needs to follow-up with orthopedic surgery in the office in 2 weeks, and her primary
care doctor 1 week after she leaves rehab. She needs to have repeat CBC and CMP at the rehab on 06/09/2024.
Disposition: Short-term rehab
Discharge planning: Required 38 minutes
Discharge Plan
-
Patient Disposition: [facility]NF
Discharge Diagnosis/Procedures: Acute left hip fracture status post surgery, mechanical fall, transaminitis, chronic pain syndrome on methadone, acute blood loss anemia from surgery, constipation, hypertension, acute urinary tract infection,
hematuria
Condition: Good
Diet: Low Fat and Low Cholesterol
Activity: As tolerated and With Walker
Driving Restrictions: Not until seen by your Dr
Bathing Restrictions: OK to Shower
Blood Work: CMP, CBC on 06/09/24
Activity Restrictions/Additional Instructions:
Take aspirin 325 mg daily through 06/29/2024 for blood clot prevention.
Avoid Tylenol due to elevated liver function tests.
Please continue taking cefdinir through 06/09/2024.
Follow-up with your primary care doctor 1 week after you leave rehab, and orthopedic surgery in the office in 2 weeks.
Referrals:
Mellissa Ring MD [Family Provider] - in one week
Salomon Chu MD [Active] - (Please call the office to schedule a postop visit 2 weeks from date of surgery for staple/suture removal; if able to perform at [facility], can followup with our office at 4 weeks from date of surgery)
Prescriptions:
New
polyethylene glycol 3350 [HealthyLax] 17 gram Powder In Packet
17 g PO DAILY Qty: 0 0RF
sennosides-docusate sodium 8.6-50 mg Tablet
2 tab PO BID Qty: 0 0RF
oxycodone 10 mg Tablet
10 mg PO Q4HPRN PRN (Reason: severe pain) Qty: 3 0RF
aspirin 325 mg tablet
325 mg PO DAILY Qty: 26 0RF
phenazopyridine 100 mg Tablet
100 mg PO TIDPRN PRN (Reason: urethral pain) Qty: 30 0RF
cefdinir 300 mg Capsule
300 mg PO Q12 4 Days Qty: 8 0RF
methadone 5 mg tablet
5 mg PO BID@1800,2200 Qty: 7 0RF
Continued
folic acid 1 mg Tablet
1 mg PO BID
metoprolol succinate [Toprol XL] 25 mg Tablet Extended Release 24 Hr
25 mg PO HS
bupropion HCl [Wellbutrin XL] 150 mg Tablet Extended Release 24 Hr
150 mg PO DAILY
Mounjaro 7.5 mg/0.5 mL Pen Injector
7.5 mg SC JOYA
losartan 50 mg Tablet
50 mg PO DAILYPRN PRN (Reason: high blood pressure)
fexofenadine 60 mg Tablet
60 mg PO DAILY
ketorolac 10 mg Tablet
10 mg PO BIDPRN PRN (Reason: migraines )
Rx Instructions:
maximum total duration of 5 days from all oral, intranasal, or parenteral formulations
famotidine [Pepcid] 20 mg Tablet
20 mg PO HS
ferrous sulfate 325 mg (65 mg iron) Tablet
325 mg PO DAILY@0200
levothyroxine [Synthroid] 150 mcg Tablet
150 mcg PO HS
furosemide [Lasix] 20 mg Tablet
20 mg PO DAILYPRN PRN (Reason: incease weight)
fluticasone propionate 50 mcg/actuation [place],Suspension
1 spray INTRANASAL DAILYPRN PRN (Reason: allergies)
duloxetine [Cymbalta] 30 mg Capsule,Delayed Release(Dr/Ec)
30 mg PO BID@1800,2200
omega-3 acid ethyl esters [Lovaza] 1 gram Capsule
2 cap PO DAILY
Vitron-C 65 mg iron- 125 mg Tablet,Delayed Release (Dr/Ec)
1 tab PO DAILY
Nurtec ODT 75 mg Tablet,Disintegrating
75 mg PO DAILYPRN PRN (Reason: migraines)
vitamin D3-vitamin K2 1,250-200 mcg Capsule
1 cap PO DAILY
magnesium glycinate 100 mg magnesium Capsule
100 mg PO BID
Medical Marijuana-Thc Tablets
1 tab PO HS
Discontinued
cephalexin 500 mg capsule
500 mg PO QID
methadone 5 mg Tablet
5 mg PO BID@1800,2200
Discharge Orders:
Discharge Patient (As Directed); Ordered 06/06/24
Ordered By: Chris Peter
Discharge Date and Time
Discharge Date/Time: 06/06/24 13:30
Print Language: DANISH
== END 2024-06-06 13:30 | DRG 481 ==
LOC: 2 SOUTH 19:46
PROVIDERS: Student in an Organized Health Care Education/Training Program; ADMITTING PHYSICIAN Internal Medicine; ATTENDING PHYSICIAN Family Medicine; CONSULT PHYSICIAN Orthopaedic Surgery; EMERGENCY PHYSICIAN Emergency Medicine; FAMILY PHYSICIAN Family Medicine
PROC: 0QS736Z Reposition Left Upper Femur with Intramedullary Internal Fixation Device, Percutaneous Approach (ICD-10-PCS; 2024-06-02)
DX: S72.142A Displaced intertrochanteric fracture of left femur, initial encounter for closed fracture (principal); D62 Acute posthemorrhagic anemia; N39.0 Urinary tract infection, site not specified; F11.20 Opioid dependence, uncomplicated; I10 Essential (primary) hypertension; I25.10 Atherosclerotic heart disease of native coronary artery without angina pectoris; G47.33 Obstructive sleep apnea (adult) (pediatric); G25.81 Restless legs syndrome; Z95.1 Presence of aortocoronary bypass graft; R26.89 Other abnormalities of gait and mobility; M79.7 Fibromyalgia; E03.9 Hypothyroidism, unspecified; E11.9 Type 2 diabetes mellitus without complications; E86.0 Dehydration; G43.909 Migraine, unspecified, not intractable, without status migrainosus; G89.4 Chronic pain syndrome; D72.829 Elevated white blood cell count, unspecified; F32.A Depression, unspecified; F41.9 Anxiety disorder, unspecified; M48.061 Spinal stenosis, lumbar region without neurogenic claudication; T39.1X5A Adverse effect of 4-Aminophenol derivatives, initial encounter; R31.9 Hematuria, unspecified; Z79.899 Other long term (current) drug therapy; Z79.890 Hormone replacement therapy; Z86.73 Personal history of transient ischemic attack (TIA), and cerebral infarction without residual deficits; W01.198A Fall on same level from slipping, tripping and stumbling with subsequent striking against other object, initial encounter
CPT/HCPCS: 70450; 73502; 76000; 76700; 80048; 80053; 81003; 81015; 82962; 84443; 85025; 85027; 86704; 86706; 86708; 86803; 86850; 86900; 86901; 87077; 87086; 87186; 87340; 93005; 94660; 96374; 96376; 97116; 97163; 97167; 97535; 99285; C1713